=== PATIENT | female | born 2000 | race Caucasian/White ===

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

== ENCOUNTER 2022-02-12 15:17 | Outpatient (REF) | payer MEDICAID, SELFPAY | END 2022-02-12 15:18 | disposition home or self-care (01) | LOC: LBN 15:17 | PROVIDERS: PCP Pediatrics; Visit Provider Nurse Practitioner Family | DX: J02.9 Acute pharyngitis, unspecified (principal) | CPT/HCPCS: 87070 ==

== ENCOUNTER 2023-09-23 21:55 | Outpatient (REF) | payer MEDICAID, SELFPAY ==
[2023-09-23 21:38] LABS: Bilirubin Negative (Negative); Blood Small (Negative); Clarity Sl Cloudy (Clear); Glucose Negative (Negative); Ketones Negative (Negative); Leukocyte Esterase Moderate (Negative); Nitrite Negative (Negative); Urobilinogen 0.2 mg/dL (Up to 0.2); pH 6.5 (5-8)
[2023-09-23 21:49] LABS: Bacteria Few HPF (Negative); C & S Indicated? Yes; Casts Negative LPF (Negative); Crystals Negative HPF (Negative); Epithelial Cells Few HPF (Negative); Mucus Negative (Negative); WBC 20-50 HPF (0-5)
== END 2023-09-23 21:56 | disposition home or self-care (01) ==
LOC: LBN 21:55
PROVIDERS: PCP Nurse Practitioner Family; Visit Provider Nurse Practitioner Family
DX: N39.0 Urinary tract infection, site not specified (principal); B96.29 Other Escherichia coli [E. coli] as the cause of diseases classified elsewhere
CPT/HCPCS: 87077; 81003; 81015; 87086; 87186

== ENCOUNTER 2024-03-04 13:56 | Outpatient (REF) | payer MEDICAID, SELFPAY ==
--- NOTE | 2024-03-04 10:15 | PAPFT_PTH ---
PATIENT: Lucy Barnes LOC: [facility] U#:[id number] AGE/SX: 23/F ROOM: RE03/04/[address]: Ez Omer DNP : 2000 BED: DIS: 03/04/2024 SPEC #: [id number] RECD: 03/05/24 13:16 STATUS: CARRIE RESusy #: [id number] TICO: 03/04/24 10:[address]: Ez Ibanez DEPT: [facility] Cytology RECD BY: Ira Gipson Tissues: 1 - CX/ENDOCX FOR PAP SMEARS Procedures: PAP THIN PREP/[facility] Screening Comments: [id number]
== END 2024-03-04 13:57 | disposition home or self-care (01) ==
LOC: LBN 13:56
PROVIDERS: PCP Nurse Practitioner Family; Visit Provider Nurse Practitioner Family
DX: Z12.4 Encounter for screening for malignant neoplasm of cervix (principal)
CPT/HCPCS: 88142

== ENCOUNTER → 2024-03-11 01:07 | Outpatient (CLI) | payer MEDICAID, SELFPAY ==
--- NOTE | 2024-03-11 09:00 | DI.US_ITS ---
Exam(s) US PELVIS TRANSVAGINAL EXAM: US PELVIS TRANSVAGINAL CLINICAL HISTORY: concern for migration of iud, strings lost,T83.32xa TECHNIQUE: Transabdominal and transvaginal imaging was performed using standard protocol. COMPARISON: US US PELVIS TRANSVAGINAL from 09/13/2021 FINDINGS: UTERUS: Anteverted. 7.5 x 2.8 x 4.4 cm Endometrium: 5 mm . IUD noted within the endometrium. Strings were identified in the cervical regio n. Myometrium: Unremarkable. Cervix: Unremarkable. OVARIES: Right: Cyst or mass: None. Left: Cyst or mass: None. DOPPLER: Color: Symmetric and uniform flow to both ovaries. No hyperemia. CUL-DE-SAC: Free fluid: None. IMPRESSION: 1. Normal-appearing uterus with endometrial stripe within normal limits. IUD in place. 2. Unremarkable bilateral ovaries. DATA REPOSITORY:
== END ==
PROVIDERS: PCP Nurse Practitioner Family; Visit Provider Nurse Practitioner Family
DX: T83.32XA Displacement of intrauterine contraceptive device, initial encounter (principal)
CPT/HCPCS: 76830; 76856

== ENCOUNTER 2024-08-15 17:49 | Outpatient (REF) | payer MEDICAID, SELFPAY | END 2024-08-15 17:50 | disposition home or self-care (01) | LOC: LBN 17:49 | PROVIDERS: PCP Nurse Practitioner Family; Visit Provider Nurse Practitioner Family | DX: N30.01 Acute cystitis with hematuria (principal); B96.29 Other Escherichia coli [E. coli] as the cause of diseases classified elsewhere | CPT/HCPCS: 87077; 87086; 87186 ==

== ENCOUNTER 2025-03-15 13:27 | Outpatient (REF) | payer MEDICAID, SELFPAY ==
--- NOTE | 2025-03-15 10:10 | PAPFT_PTH ---
PATIENT: Lucy Barnes LOC: [facility] U#:[id number] AGE/SX: 24/F ROOM: RE03/15/[address]: Ez Omer DNP : 2000 BED: DIS: 03/15/2025 SPEC #: [id number] RECD: 03/15/25 18:10 STATUS: CARRIE RESusy #: [id number] TICO: 03/15/25 10:[address]: Ez Ibanez DEPT: [facility] Cytology RECD BY: Ira Gipson Tissues: 1 - CX/ENDOCX FOR PAP SMEARS Procedures: PAP THIN PREP/[facility] Screening Comments: [id number]
[2025-03-15 22:33] LABS: ALT 27 U/L (14-59); AST 18 U/L (15-37); Albumin 4.3 g/dL (3.4-5.0); Alkaline Phosphatase 58 U/L (46-116); Anion Gap 8.9 mmol/L (3-11); BUN 13 mg/dL (7-18); Bilirubin, Total 0.6 mg/dL (0.2-1.0); CO2 27.1 mmol/L (21.0-32.0); CREATININE 0.7 mg/dL (0.55-1.02); Calculated LDL 118 mg/dL (<100); Chloride 104 mmol/L (98-107); Cholesterol 195 mg/dL (<200); Estimated GFR 125.33 (mL/min/1.73m2); Glucose 84 mg/dL (74-106); HDL Cholesterol 54 mg/dL (>or=50); Sodium 140 mmol/L (136-145); TSH (W/Ref FT4) 1.43 uIU/mL (0.36-3.74); Total Protein 7.3 g/dL (6.4-8.2); Triglyceride 115 mg/dL (<150)
[2025-03-16 23:29] LABS: HIV-1/2 Ag & Ab Screen Negative (Negative)
[2025-03-16 23:32] LABS: Hepatitis C Ab w Rflx HCV PCR Negative (Negative)
[2025-03-16 23:35] LABS: HBs Antibody, Quant 66.9 mIU/mL (See Note); Hep B Surface Ab Positive (See Note); Hepatitis B Core Antibody Negative (Negative); Hepatitis B Surface Antigen Negative (Negative)
== END 2025-03-15 13:28 | disposition home or self-care (01) ==
LOC: LBN 13:27
PROVIDERS: PCP Nurse Practitioner Family; Visit Provider Nurse Practitioner Family
DX: Z11.59 Encounter for screening for other viral diseases (principal); Z13.220 Encounter for screening for lipoid disorders; Z11.4 Encounter for screening for human immunodeficiency virus [HIV]; R63.5 Abnormal weight gain
CPT/HCPCS: 80053; 80061; 86704; 86706; 86803; 87340; 87389; 88142; 84443

== ENCOUNTER 2025-03-18 17:56 | Outpatient (REF) | payer MEDICAID, SELFPAY | END 2025-03-18 17:57 | disposition home or self-care (01) | LOC: LBN 17:56 | PROVIDERS: PCP Nurse Practitioner Family; Visit Provider Physician Assistant Medical | DX: R30.0 Dysuria (principal) | CPT/HCPCS: 87077; 81015; 87086; 87186; 87480; 87510; 87660 ==